=== PATIENT | female | born 1955 | race Caucasian/White ===

== ENCOUNTER 2017-11-17 11:26 | Emergency (ER) | payer SELFPAY ==
[~2017-11-17] VITALS: Ht 170.2 cm; Wt 90.7 kg
[2017-11-17 11:39] VITALS: BP 139/70
[2017-11-17] MEDS ORDERED: IPRATROPIUM NEB FS 0.5 MG/2.5 ML AMPUL.NEB NEB ONE (12:00)
[2017-11-17] MEDS ORDERED: ALBUTEROL FS 2.5 MG/3 ML VIAL.NEB NEB ONE (12:00)
--- NOTE | 2017-11-17 12:03 | NUR ---
RT CALLED FOR A BREATHING TREATMENT ORDER [facility] NOTIFIED OF CXR ORDER
[2017-11-17] MEDS ORDERED: IPRATROPIUM NEB FS 0.5 MG/2.5 ML AMPUL.NEB ONE (12:13)
[2017-11-17] MEDS ORDERED: ALBUTEROL FS 2.5 MG/3 ML VIAL.NEB ONE (12:13)
[2017-11-17] MEDS ORDERED: HYDROCODONE/APAP 5/325MG 1 EACH TABLET ONE (12:42)
--- NOTE | 2017-11-17 12:44 | NUR ---
*NORCO 5/325 GIVEN PO ORDERED BY DR ENCINAS
--- NOTE | 2017-11-17 12:45 | NUR ---
PT TAKEN TO RADIOLOGY DEPT FOR XRAY
[2017-11-17] MEDS ORDERED: HYDROCODONE/APAP 5/325MG 1 EACH TABLET PO ONE (13:00)
== END 2017-11-17 14:07 | disposition home or self-care (01) ==
LOC: ER 11:28
DX: M10.9 Gout, unspecified (principal); J45.901 Unspecified asthma with (acute) exacerbation; I10 Essential (primary) hypertension; E11.9 Type 2 diabetes mellitus without complications; Z88.1 Allergy status to other antibiotic agents
CPT/HCPCS: 71045; 73630; 94640; 99284; A4606; Z7610

== ENCOUNTER 2018-11-22 15:00 | Emergency (ER) | payer MEDICAID ==
[~2018-11-22] VITALS: Ht 170.2 cm; Wt 100.7 kg
[2018-11-22 15:06] VITALS: BP 162/76
--- NOTE | 2018-11-22 15:23 | NUR ---
urine sample sent to lab.
[2018-11-22 15:43] LABS: APPEARANCE,URINE Clear (CLEAR); BILIRUBIN,URINE Negative (NEGATIVE); BLOOD, URINE Trace-intact Ery/uL (NEGATIVE); COLOR,URINE Yellow (YELLOW); KETONES,URINE Trace (NEGATIVE); LEUKOCYTE ESTERASE ,URINE Negative (NEGATIVE); NITRITE, URINE Negative (NEGATIVE); PROTEIN,URINE Negative (NEGATIVE); UGLUCOSE Negative (NEGATIVE); UROBILINOGEN,URINE 0.2 EU/dL (0.2)
[2018-11-22 15:47] LABS: BACTERIA,URINE None seen /HPF (None Seen); RBC,URINE 0-2 /HPF (0-2); SQUAMOUS EPITHELIAL CELL,UR None Seen /HPF (None Seen); WBC,URINE NONE SEEN /HPF (0-3)
== END 2018-11-22 16:05 | disposition home or self-care (01) ==
LOC: ER 15:02
DX: N39.0 Urinary tract infection, site not specified (principal); I10 Essential (primary) hypertension; E11.9 Type 2 diabetes mellitus without complications; J45.909 Unspecified asthma, uncomplicated; M10.9 Gout, unspecified; Z88.1 Allergy status to other antibiotic agents; Z60.2 Problems related to living alone
CPT/HCPCS: 81000-TC; 87086-TC